=== PATIENT | male | born 1955 | race African-American/Black ===

== ENCOUNTER 2020-10-21 16:24 | Inpatient (IN) | payer OTHER ==
[2020-10-21 17:17] VITALS: BMI 22.6
[2020-10-21] MEDS ORDERED: IBUPROFEN 400 MG TABLET (FP) PO PRN (18:26)
[2020-10-21] MEDS ORDERED: ONDANSETRON *ODT* 4 MG TABLET SL PRN (18:26)
[2020-10-21] MEDS ORDERED: BISMUTH SUBSALICYLATE 524 MG/30 ML PO PRN (18:26)
[2020-10-21] MEDS ORDERED: MAGNESIUM CITRATE 300 ML BOTTLE PO PRN (18:26)
[2020-10-21] MEDS ORDERED: ACETAMINOPHEN 325 MG TABLET (FP) PO PRN (18:26)
[2020-10-21] MEDS ORDERED: METHADONE HCL 10 MG TABLET (FOR DETOX USE ONLY) PO ONE (18:26)
[2020-10-21] MEDS ORDERED: MAG HYDROX/AL HYDROX/SIMETH 30 ML UNIT-DOSE CUP PO PRN (18:26)
[2020-10-21] MEDS ORDERED: MAGNESIUM HYDROX 2400MG/30ML ORAL SUSPENSION 30 ML CUP PO PRN (18:26)
[2020-10-21] MEDS ORDERED: cloNIDine HCL 0.1 MG TABLET PO PRN (18:26)
[2020-10-21] MEDS ORDERED: MENTHOL/PHENOL 1 EACH UD MM PRN (18:26)
[2020-10-21] MEDS ORDERED: ALBUTEROL SO4 HFA INHALER IH ONE (19:29)
[2020-10-21] MEDS: ALBUTEROL SO4 HFA INHALER IH PRN (19:41)
[2020-10-21] MEDS: MELATONIN 5 MG TABLETS PO SCH (22:06)
[2020-10-21] MEDS: THIAMINE HCL 100 MG TABLET (FP) PO SCH (22:06)
[2020-10-21] MEDS: hydrOXYzine PAMOATE 25 MG CAPSULE (FP) PO SCH (22:06)
[2020-10-22] MEDS: hydrOXYzine PAMOATE 25 MG CAPSULE (FP) PO SCH ×2 (06:00→10:26)
[2020-10-22] MEDS ORDERED: METHADONE (DETOX) 20 MG, METHADONE (DETOX) 5 MG PO ONE (10:00)
[2020-10-22] MEDS ORDERED: METHADONE HCL 10 MG TABLET (FOR DETOX USE ONLY) ONE (10:07)
[2020-10-22] MEDS ORDERED: METHADONE HCL 5 MG TABLET (FOR DETOX USE ONLY) ONE (10:07)
[2020-10-22] MEDS: ASPIRIN 81 MG CHEWABLE TABLETS PO SCH (10:26)
[2020-10-22] MEDS: METHOCARBAMOL 500 MG TABLET PO PRN (10:26)
[2020-10-22] MEDS: TAMSULOSIN HCL 0.4 MG CAP PO SCH (10:26)
[2020-10-22] MEDS: PRENATAL VITAMINS W/ FOLIC ACID TABLET (FP) PO SCH (10:27)
[2020-10-22] MEDS: BUDESONIDE/FORMETEROL FUMARATE 160/4.5 mcg INHALER IH SCH ×2 (10:28→22:28)
[2020-10-22] MEDS ORDERED: hydrOXYzine PAMOATE 25 MG CAPSULE (FP) PO PRN (11:11)
[2020-10-22 11:13] LABS: HEMATOCRIT 33.4 % (35.4-49); HEMOGLOBIN 10.9 GM/dL (11.7-16.9); MCH 30.4 pg (25.7-33.7); MCHC 32.5 g/dl (32.0-35.9); MEAN CELL VOLUME 93.3 fl (80-96); MEAN PLT VOLUME 10.7 fl (7.5-11.1); PLATELET COUNT 170 10^3/uL (134-434); RBC 3.58 M/mm3 (4.00-5.60); RDW 14.5 % (11.9-15.9); WHITE BLOOD COUNT 6.1 K/mm3 (4.0-10.0)
[2020-10-22 11:17] LABS: CALCIUM 8.7 mg/dL (8.5-10.1)
[2020-10-22 11:18] LABS: ALBUMIN 3.4 g/dl (3.4-5.0); BLOOD UREA NITROGEN 23.7 mg/dL (7-18)
[2020-10-22 11:21] LABS: CREATININE 1.3 mg/dL (0.55-1.3)
[2020-10-22 11:23] LABS: BILIRUBIN,TOTAL 0.4 mg/dL (0.2-1); TOT PROT 6.1 g/dl (6.4-8.2)
[2020-10-22] MEDS: DOXYCYCLINE MONOHYDRATE 100 MG PO SCH ×2 (12:36→17:49)
[2020-10-22] MEDS: TRIAMTERENE AND HCTZ - 37.5 MG/25 MG CAPSULE PO SCH (12:38)
[2020-10-22] MEDS: ALBUTEROL SO4 HFA INHALER IH PRN ×2 (15:20→20:42)
[2020-10-22] MEDS: THIAMINE HCL 100 MG TABLET (FP) PO SCH (22:26)
[2020-10-22] MEDS: MELATONIN 5 MG TABLETS PO SCH (22:26)
[2020-10-22] MEDS: MONTELUKAST NA 10 MG TABLET PO SCH (22:26)
[2020-10-22] MEDS: ACETAMINOPHEN 325 MG TABLET (FP) PO PRN (22:26)
[2020-10-22] MEDS: ATORVASTATIN CA 80 MG TABLET (FP) PO SCH (22:26)
[2020-10-23] MEDS: ALBUTEROL SO4 HFA INHALER IH PRN ×2 (05:58→20:06)
[2020-10-23] MEDS: TAMSULOSIN HCL 0.4 MG CAP PO SCH (09:10)
[2020-10-23] MEDS ORDERED: METHADONE HCL 10 MG TABLET (FOR DETOX USE ONLY) PO ONE (10:00)
[2020-10-23] MEDS: PRENATAL VITAMINS W/ FOLIC ACID TABLET (FP) PO SCH (10:09)
[2020-10-23] MEDS: DOXYCYCLINE MONOHYDRATE 100 MG PO SCH ×2 (10:09→17:28)
[2020-10-23] MEDS: TRIAMTERENE AND HCTZ - 37.5 MG/25 MG CAPSULE PO SCH (10:09)
[2020-10-23] MEDS: BUDESONIDE/FORMETEROL FUMARATE 160/4.5 mcg INHALER IH SCH ×2 (10:09→22:06)
[2020-10-23] MEDS: METHOCARBAMOL 500 MG TABLET PO PRN (10:13)
[2020-10-23] MEDS: ASPIRIN 81 MG CHEWABLE TABLETS PO SCH (10:13)
[2020-10-23 15:19] LABS: PH,URINE 7.5 (5.0-8.0); URINE APPEARANCE CLEAR; URINE BILIRUBIN NEGATIVE (NEGATIVE); URINE COLOR YELLOW; URINE GLUCOSE (UA) NEGATIVE (NEGATIVE); URINE KETONE NEGATIVE (NEGATIVE); URINE LEUK ESTERASE NEGATIVE (NEGATIVE); URINE NITRITE NEGATIVE (NEGATIVE); URINE PROTEIN NEGATIVE (NEGATIVE); URINE UROBILINOGEN 0.2 mg/dL (0.2-1.0)
[2020-10-23] MEDS: NICOTINE POLACRILEX 2 MG GUM BUC PRN ×2 (17:30→22:08)
[2020-10-23] MEDS: THIAMINE HCL 100 MG TABLET (FP) PO SCH (22:06)
[2020-10-23] MEDS: MELATONIN 5 MG TABLETS PO SCH (22:06)
[2020-10-23] MEDS: MONTELUKAST NA 10 MG TABLET PO SCH (22:06)
[2020-10-23] MEDS: ATORVASTATIN CA 80 MG TABLET (FP) PO SCH (22:06)
[2020-10-24] MEDS: TAMSULOSIN HCL 0.4 MG CAP PO SCH (07:41)
[2020-10-24] MEDS ORDERED: METHADONE HCL 10 MG TABLET (FOR DETOX USE ONLY) ONE (09:43)
[2020-10-24] MEDS ORDERED: METHADONE HCL 5 MG TABLET (FOR DETOX USE ONLY) ONE (09:44)
[2020-10-24] MEDS ORDERED: METHADONE (DETOX) 10 MG, METHADONE (DETOX) 5 MG PO ONE (10:00)
[2020-10-24] MEDS: DOXYCYCLINE MONOHYDRATE 100 MG PO SCH ×2 (10:19→17:26)
[2020-10-24] MEDS: ASPIRIN 81 MG CHEWABLE TABLETS PO SCH (10:20)
[2020-10-24] MEDS: TRIAMTERENE AND HCTZ - 37.5 MG/25 MG CAPSULE PO SCH (10:20)
[2020-10-24] MEDS: PRENATAL VITAMINS W/ FOLIC ACID TABLET (FP) PO SCH (10:21)
[2020-10-24] MEDS: BUDESONIDE/FORMETEROL FUMARATE 160/4.5 mcg INHALER IH SCH ×2 (10:22→21:48)
[2020-10-24] MEDS: ACETAMINOPHEN 325 MG TABLET (FP) PO PRN (17:32)
[2020-10-24] MEDS: MONTELUKAST NA 10 MG TABLET PO SCH (21:47)
[2020-10-24] MEDS: THIAMINE HCL 100 MG TABLET (FP) PO SCH (21:47)
[2020-10-24] MEDS: ATORVASTATIN CA 80 MG TABLET (FP) PO SCH (21:47)
[2020-10-24] MEDS: ALBUTEROL SO4 HFA INHALER IH PRN (21:48)
[2020-10-24] MEDS: MELATONIN 5 MG TABLETS PO SCH (21:48)
[2020-10-25 06:26] VITALS: BP 138/80; PULSE 66; TEMP 97.1
[2020-10-25] MEDS ORDERED: METHADONE HCL 10 MG TABLET (FOR DETOX USE ONLY) PO ONE (10:00)
[2020-10-26] MEDS ORDERED: METHADONE HCL 5 MG TABLET (FOR DETOX USE ONLY) PO ONE (06:00)
== END 2020-10-25 06:48 | disposition left against medical advice (07) | DRG 770 ==
LOC: YASAS 16:24 → Y3N 18:41
PROVIDERS: ADMIT Allergy & Immunology; ATTEND Allergy & Immunology
PROC: HZ2ZZZZ Detoxification Services for Substance Abuse Treatment (ICD-10-PCS; principal; 2020-10-21)
DX: F11.23 Opioid dependence with withdrawal (principal); F17.210 Nicotine dependence, cigarettes, uncomplicated; I10 Essential (primary) hypertension; J45.909 Unspecified asthma, uncomplicated; E11.9 Type 2 diabetes mellitus without complications; Z79.84 Long term (current) use of oral hypoglycemic drugs; R60.0 Localized edema; Z95.5 Presence of coronary angioplasty implant and graft; Z87.440 Personal history of urinary (tract) infections; Z98.890 Other specified postprocedural states
CPT/HCPCS: 36415; 80053; 81003; 82962; 85027; 86780; C9803; J0735; U0003; U0005